=== PATIENT | female | born 1995 | race Two or more races ===

== ENCOUNTER 2022-07-08 19:18 | Emergency (ER) | payer OTHER ==
[~2022-07-08] VITALS: Ht 167.6 cm; Wt 74.8 kg
[2022-07-08] MEDS ORDERED: IV NORMAL SALINE 1000 ML BAG IV ONE (19:45)
[2022-07-08 20:04] LABS: HEMATOCRIT 40.1 % (31.2-41.9); MEAN CORPUSCULAR HEMOGLOBIN 30.4 uug (24.7-32.8); MEAN CORPUSCULAR VOLUME 88.2 fL (75.5-95.3); PLATELET COUNT (AUTO) 279 K/uL (179-408)
[2022-07-08] MEDS ORDERED: MECLIZINE HCL 25 MG TABLET ONE (20:10)
[2022-07-08] MEDS ORDERED: ONDANSETRON HCL 4 MG TABLET ONE (20:10)
[2022-07-08 20:15] LABS: ALANINE AMINOTRANSFERASE 49 U/L (14-59); ALKALINE PHOSPHATASE 41 U/L (50-136); ASPARTATE AMINOTRANSFERASE 26 U/L (15-37); BILIRUBIN,DIRECT < 0.1 mg/dL (0.0-0.2); BILIRUBIN,TOTAL 0.2 mg/dL (0.2-1.0); CARBON DIOXIDE 27 mmol/L (21-32); CHLORIDE 104 mmol/L (98-107); CREATININE 0.8 mg/dL (0.6-1.3); GLUCOSE 109 mg/dL (74-106); TOTAL PROTEIN, SERUM 7.4 g/dL (6.4-8.2); UREA NITROGEN, BLOOD 11 mg/dL (7-18)
[2022-07-08] MEDS ORDERED: MECLIZINE HCL 25 MG TABLET PO ONE (20:15)
[2022-07-08] MEDS ORDERED: ONDANSETRON ODT 4 MG TAB.RAPDIS SL ONE (20:15)
[2022-07-08] MEDS ORDERED: ONDANSETRON 4 MG/2 ML VIAL ONE (20:20)
[2022-07-08] MEDS ORDERED: ONDANSETRON 4 MG/2 ML VIAL IV ONE (20:45)
[2022-07-08] MEDS ORDERED: POTASSIUM CHLORIDE 20 MEQ TAB.PRT.SR PO ONE (22:15)
[2022-07-08] MEDS ORDERED: POTASSIUM CHLORIDE 20 MEQ TAB.PRT.SR ONE (23:07)
[2022-07-08 23:10] LABS: *BLOOD, URINE 3+ (NEGATIVE); *CLARITY,URINE CLEAR (CLEAR); *KETONES,URINE 2+ (NEGATIVE); *UROBILINOGEN,URINE 0.2 E.U./dl (NORMAL); LEUKOCYTE ESTERASE ,URINE 1+ (NEGATIVE); NITRITE, URINE NEGATIVE (NEGATIVE); PH,URINE 5.5 (5.0-8.0); UGLUCOSE NEGATIVE (NEGATIVE)
[2022-07-08 23:12] LABS: *BILIRUBIN,URIN 1+ (NEGATIVE); *COLOR,URINE CLOUDY (YELLOW)
--- NOTE | 2022-07-08 23:12 | NUR ---
Patient presented to the ER via EMS with complaint of dizziness and nausea S/P near syncope episode. Patient is AAOx3, medications given per MD order. Discharge instructions provided. Patient is stable, left ambulatory.
[2022-07-08 23:13] LABS: *URINE HCG, QUAL NEGATIVE (NEGATIVE)
[2022-07-08] MEDS ORDERED: MECL-159 PO (23:29)
[2022-07-08] MEDS ORDERED: NITR100C11 PO (23:34)
[2022-07-08 23:40] LABS: RBC,URINE TNTC /HPF (0-3)
[2022-07-08 23:41] LABS: BACTERIA,URINE MODERATE /HPF (NONE SEEN); SQUAMOUS EPITHELIAL CELL,UR MODERATE /HPF (NONE SEEN)
[2022-07-08 23:43] VITALS: BP 120/55
--- NOTE | 2022-07-09 00:10 | NUR ---
Patient discharged to home in stable condition. Written and verbal after care instructions given. Patient verbalizes understanding of instructions. Stressed follow up or return to ER for worsening s/s.
== END 2022-07-09 00:10 | disposition home or self-care (01) ==
LOC: ER 19:26
DX: R55 Syncope and collapse (principal); N39.0 Urinary tract infection, site not specified; E87.6 Hypokalemia
CPT/HCPCS: 99284; 96374; 96361; 80076; 80048; 81001; 84703; 85025; 84484; 84702; 36415; 93005; J2405; J7040; A4663; J8597; Q0162